=== PATIENT | female | born 1975 | race Hispanic/Latino ===

== ENCOUNTER 2018-03-31 14:36 | Emergency (ER) | payer BC ==
--- NOTE | 2018-03-31 15:40 | ED PDOC ---
HPI: General Adult Time Seen by Provider: 03/31/18 15:39 Chief Complaint (Nursing): Female Genitourinary History Per: Patient History/Exam Limitations: no limitations Onset/Duration Of Symptoms: Days (<1) Current Symptoms Are (Timing): Still Present Severity: Moderate Pain Scale Rating Of: 5 Recently: Treated By A Physician (pt was treated at local urgent care center) Additional Complaint(s): pt p/w + sudden onset, since this morning, + dark urine; pt states she also noticed mild b/l flank aches, with right >> left; pt was seen/evaluated at local urgent care center and dx with UTI but was also prescribed CT and was instructed to come to ED for further eval. pt states at most her flank pain is 5 /10; pt states no fever/chills/sweats, no cp/sob/palpitations, no abd pain, no n /v, no numbness/tingling, no urinary/bowel changes, no dysuria; pt denied rashes ; pt denied other complaints; pt is here for further eval. pt denied fall/trauma/sick contact, no travel. PCP: Dr Holm LMP: 1 month ago family hx: unremarkable PMHX: unremarkable pt is on OCP/otc vitamins Past Medical History Reviewed: Historical Data, Nursing Documentation, Vital Signs Vital Signs: Last Vital Signs Temp 98 F 03/31/18 14:57 Pulse 74 03/31/18 14:57 Resp BP 116/72 03/31/18 14:59 Pulse Ox 99 03/31/18 18:22 - Medical History PMH: No Chronic Diseases - Surgical History Surgical History: No Surg Hx - Family History Family History: States: No Known Family Hx - Living Arrangements Living Arrangements: With Family - Social History Current smoker - smoking cessation education provided: No Alcohol: None Drugs: Denies - Immunization History Hx Tetanus Toxoid Vaccination: No Hx Influenza Vaccination: No Hx Pneumococcal Vaccination: No - Allergies Allergies/Adverse Reactions: Allergies Allergy/AdvReac Type Severity Reaction Status Date / Time No Known Allergies Allergy Verified 03/31/18 14:59 Review of Systems ROS Statement: Except As Marked, All Systems Reviewed And Found Negative Constitutional: Negative for: Fever, Chills, Sweats, Weakness, Malaise, Weight loss Eyes: Negative for: Pain ENT: Negative for: Ear Pain Cardiovascular: Negative for: Chest Pain, Palpitations Respiratory: Negative for: Cough, Shortness of Breath, SOB with Exertion Gastrointestinal: Negative for: Nausea, Vomiting, Abdominal Pain Genitourinary Female: Positive for: Hematuria. Negative for: Dysuria, Frequency , Incontinence Musculoskeletal: Negative for: Neck Pain, Shoulder Pain, Back Pain Skin: Negative for: Rash Neurological: Negative for: Weakness Psych: Negative for: Anxiety, Depression, Psychosis Physical Exam - Reviewed Nursing Documentation Reviewed: Yes Vital Signs Reviewed: Yes (WNL) - Physical Exam Appears: Positive for: Well (alert/awake, GCS = 15, oriented x 3, NAD, comfortable, cooperative), Non-toxic, No Acute Distress Head Exam: Positive for: ATRAUMATIC, NORMAL INSPECTION, NORMOCEPHALIC Skin: Positive for: Normal Color (cap refill < 1sec, no ulcerations, no jaundice , no petechiae, no pallor), Warm. Negative for: Rash Eye Exam: Positive for: Normal appearance, EOMI, PERRL. Negative for: Nystagmus , Scleral icterus ENT: Positive for: Normal ENT Inspection, Pharynx Is, TM Is/Are (WNL) Neck: Positive for: Normal, Painless ROM, Supple, Trachea Midline Cardiovascular/Chest: Positive for: Regular Rate, Rhythm, Chest Non Tender. Negative for: JVD, Murmur Respiratory: Positive for: Normal Breath Sounds. Negative for: Rales, Rhonchi, Wheezing Gastrointestinal/Abdominal: Positive for: Normal Exam, Bowel Sounds, Soft, Other (well nourished/thin female, no focal tenderness, no masses/rebound/ guarding/rigidity; no gutiérrez's sign, no mcburney's point tenderness) Back: Positive for: Normal Inspection, R CVA Tenderness (mild). 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, Oriented, Other (no facial asymmetries, no slurr speech, oriented x 3) - Laboratory Results Result Diagrams: 03/31/18 15:50 03/31/18 15:50 Interpretation Of Abn Labs: ABNL UA with faintly elevated CK - ECG O2 Sat by Pulse Oximetry: 99 Pulse Ox Interpretation: Normal - Radiology X-Ray: Read By Radiologist - Progress ED Course And Treament: 6:30pm - pt is doing well pt is comfortable pt is not in any distress pt is currently awaiting U/S as well as IV abx to be provided Time: 1812 --CT ABD/pelvis FINDINGS: Limitations: The study is limited due to lack of contrast and paucity of intra- abdominal/intrapelvic fat. Lower thorax: Small dependent atelectasis is noted at the lung bases. ABDOMEN: Liver: Normal. No mass. Gallbladder and bile ducts: The gallbladder is contracted without calculus. Pancreas: Normal. No ductal dilation. Spleen: Normal. No splenomegaly. Adrenals: Normal. No mass. Kidneys and ureters: No renal or ureteral calculus. Increased attenuation in the right pelvicocalyceal system. No hydronephrosis. Stomach and bowel: There is fecal stasis in the colon. Appendix: The appendix is not identified. PELVIS: Bladder: No bladder calculus. Reproductive: Unremarkable uterus. The ovaries are not identified. ABDOMEN and PELVIS: Intraperitoneal space: Small cul-de-sac fluid which is higher attenuated than simple fluid. Bones/joints: Sacralization of the right side at L5. No acute fracture. No dislocation. Soft tissues: Unremarkable. Vasculature: Normal. No abdominal aortic aneurysm. Lymph nodes: Normal. No enlarged lymph nodes. IMPRESSION: 1. Limited study due to lack of contrast and paucity of fat. 2. No renal calculus or hydronephrosis. Increased attenuation in the right pelvicocalyceal system. It may be due to hemorrhage. What was the abnormality on the urinalysis? 3. Nonvisualization of the appendix. Constipation. 4. Small high attenuation cul-de-sac fluid. It may be due to hemorrhage or proteinaceous debris. Consider renal and pelvic ultrasound. 7:05pm - pt is endorsed to overnight ED attending, Dr Hoyos, pt is pending U/S and re-evaluation, pt can be dispositioned accordingly Re-evaluation Time: 15:46 Condition: Re-examined, Improved Medical Decision Making Medical Decision Making: Impression: hematuria/abnl UA; flank pain i have consider all the differential diagnosis regarding pt's chief medical complaints/clinical findings, including but are not limited to: r/o infection, r /o stones A/P: hematuria/abnl UA, flank pain - labs - iv - ct - ua - supportive care - observe/reevaluation Disposition - Clinical Impression Clinical Impression: UTI (urinary tract infection), Hematuria - Patient ED Disposition Is Patient to be Admitted: Transfer of Care Discussed With DrEsme: Pascual Hoyos (awaiting U/S results, re-eval; pt can be dispositioned accordingly) Doctor Will See Patient In The: ED Counseled Patient/Family Regarding: Studies Performed, Diagnosis, Need For Followup, Rx Given - Disposition Referrals: PCP,NO [Non-Staff] - Emmanuel Tolentino MD [Staff Provider] - Willard Martin MD [Staff Provider] - Disposition: Transfer of Care (Dr Hoyos, overnight ED attending, will continue to monitor) Disposition Time: 19:05 Condition: STABLE Additional Instructions: Make sure to see your doctor in 1-2 days DRINK PLENTY OF FLUIDS take your medications as prescribed RETURN TO ED IF worse pain, cant breath, persistent vomiting, high fever >101- 102 for hours, altered behavior, slurr speech, facial changes, focal weakness ( arm/leg or both), unable to urinate, heavy/persistent bleeding, passing out, chest pain, or other medical emergencies Instructions: Urinary Tract Infections in Adults Forms: [facility] (Khmer) Print Language: CITIZEN OF [place]
[2018-03-31] MEDS ORDERED: Sodium Chloride 0.9% 1,000 ML IV SCH ×2 (15:45→18:30)
[2018-03-31 16:05] LABS: BASO # 0.1 K/uL (0.0-0.2); BASO % 0.9 % (0.0-2.0); EOS # 0.1 K/uL (0.0-0.7); EOS % 2.1 % (0.0-4.0); LYMPH # 1.7 K/uL (1.0-4.3); LYMPH % 25.1 % (20.0-40.0); MEAN CELL VOLUME 82.3 fl (81.0-99.0); MEAN CORPUSCULAR HEMOGLOBIN 27.2 pg (27.0-31.0); MEAN CORPUSCULAR HGB CONC 33.1 g/dL (33.0-37.0); MEAN PLATELET VOLUME 9.5 fl (7.2-11.7); MONO # 0.3 K/uL (0.0-0.8); MONO % 3.8 % (0.0-10.0); NEUT # 4.5 K/uL (1.8-7.0); NEUT % 68.1 % (50.0-75.0); NRBC % 0.1 % (0.0-0.0); RBC 4.43 Mil/uL (3.80-5.20); RED CELL DISTRIBUTION WIDTH 13.9 % (11.5-14.5); WHITE BLOOD COUNT 6.6 K/uL (4.8-10.8)
[2018-03-31 16:24] LABS: ALB/GLOB RATIO 1.1 (1.0-2.1); ALBUMIN 4.2 g/dL (3.5-5.0); ALT/SGPT 29 U/L (9-52); AST/SGOT 53 U/L (14-36); BLOOD UREA NITROGEN 15 mg/dl (7-17); CALCIUM 9.1 mg/dL (8.4-10.2); GFR AFRICAN-AMERICAN > 60; GFR NON-AFRICAN AMERICAN > 60; LIPASE 99 U/L (23-300)
[2018-03-31 17:31] LABS: URINE BILIRUBIN LARGE (NEGATIVE); URINE CLARITY Turbid (Clear); URINE COLOR RED (YELLOW); URINE GLUCOSE (UA) NEGATIVE (Normal)
[2018-03-31 17:32] LABS: URINE BLOOD LARGE (NEGATIVE); URINE PROTEIN > 300 mg/dL (NEGATIVE); URINE UROBILINOGEN 0.2 mg/dL (0.2-1.0)
[2018-03-31 17:33] LABS: URINE LEUKOCYTE ESTERASE LARGE Leu/uL (Negative)
[2018-03-31 17:35] LABS: URINE BACTERIA MANY (<OCC)
[2018-03-31] MEDS ORDERED: cefTRIAXone 1,000 MG in PED IV SYRINGE 1 SYR IVPB ONE (17:52)
[2018-03-31] MEDS ORDERED: cefTRIAXone (Rocephin) 1 gm Inj ONE (18:19)
--- NOTE | 2018-03-31 19:18 | ED PDOC ---
- Laboratory Results Result Diagrams: 03/31/18 15:50 03/31/18 15:50 - ECG O2 Sat by Pulse Oximetry: 99 Medical Decision Making Medical Decision Making: Time: 1899 --Patient is endorsed to provider by Dr. Jacob, pending US results and re- evaluation. -------- Time: 2013 --US pelvis FINDINGS: Uterus/cervix: The uterus is anteflexed. It is normal in size and echotexture measuring 6.6x2.5x3.1 CM. Normal echogenic endometrial stripe thickness of 4 mm. No myometrial mass. Right ovary: The right ovary measures 1.8x1.3x1.7 CM with a volume of 2.2 mL. No cystic mass. Normal blood flow. Left ovary: The left ovary measures 1.8x1.2x1.5 CM with a volume 1.7 mL. No cystic mass. Normal blood flow. Free fluid: Small cul-de-sac fluid which appears simple without fluid debris levels. IMPRESSION: Small cul-de-sac fluid. -------- Time: 2054 --Upon provider re-evaluation, patient is feeling better, medically stable and requires no further treatment in the ED at this time. Patient will be discharged home with Rx for Levaquin 500mg. Counseling was provided and all questions were answered regarding diagnosis and need for follow up with Dr. Holm and an urologist. There is agreement to discharge plan. Return if symptoms persist or worsen. Clinical Impression: UTI; Hematuria Scribe Attestation: Documented by Sofía Martinez, acting as a scribe for Pascual Hoyos MD. Provider Scribe Attestation: All medical record entries made by the Scribe were at my direction and personally dictated by me. I have reviewed the chart and agree that the record accurately reflects my personal performance of the history, physical exam, medical decision making, and the department course for this patient. I have also personally directed, reviewed, and agree with the discharge instructions and disposition. Disposition Counseled Patient/Family Regarding: Studies Performed, Diagnosis, Need For Followup, Rx Given - Clinical Impression Clinical Impression: UTI (urinary tract infection), Hematuria - POA Present On Arrival: None - Disposition Referrals: Willard Martin MD [Staff Provider] - Emmanuel Tolentino MD [Staff Provider] - PCP,NO [Non-Staff] - Disposition: Routine/Home Disposition Time: 20:55 Condition: IMPROVED Additional Instructions: Make sure to see your doctor in 1-2 days DRINK PLENTY OF FLUIDS take your medications as prescribed RETURN TO ED IF worse pain, cant breath, persistent vomiting, high fever >101- 102 for hours, altered behavior, slurr speech, facial changes, focal weakness ( arm/leg or both), unable to urinate, heavy/persistent bleeding, passing out, chest pain, or other medical emergencies Prescriptions: levoFLOXacin [Levaquin] 500 mg PO DAILY #10 tab Instructions: Urinary Tract Infections in Adults Forms: [facility] (Cymro) Print Language: SYRI[place]
[2018-03-31 21:03] VITALS: BP 114/77; PULSE 60; RESP 18; TEMP 98.2; O2SAT 100
--- NOTE | 2018-04-01 12:19 | US ---
Date of service: 03/31/2018 HISTORY: Abnormal fluid in the cul de sac COMPARISON: Correlation made with CT scan abdomen pelvis 03/31/2018 TECHNIQUE: Transabdominal sonographic evaluation of the pelvis performed. FINDINGS: UTERUS: Measures 6.6 x 3.1 x 2.5 cm. Normal in size and appearance. No fibroid or other mass lesion seen. ENDOMETRIUM: Measures 4.0 mm in diameter. Unremarkable. CERVIX: No cervical abnormality identified. RIGHT OVARY: Measures 1.8 x 1.7 x 1.3 1.8 x 1.5 x 1.2 the cm. No solid mass. Normal flow. LEFT OVARY: Measures cm. No solid mass. Normal flow. FREE FLUID: There is free fluid seen in the right and left periadnexal regions former more so than latter OTHER FINDINGS: None. IMPRESSION: Free fluid within the cul de sac and surrounding both ovaries right greater than left. .
--- NOTE | 2018-04-01 13:21 | CT ---
Date of service: 03/31/2018 PROCEDURE: CT Abdomen and Pelvis with Oral contrast. HISTORY: Right flank pain, abnormal UA COMPARISON: None. TECHNIQUE: Contiguous axial images of the abdomen and pelvis. . Coronal and Sagittal reformats generated. This CT exam was performed using one or more of the following dose reduction techniques: Automated exposure control, adjustment of the mA and/or kV according to patient size, and/or use of iterative reconstruction technique. Radiation dose: Total exam DLP = 205.13 mGy-cm. Note this examination was limited by the lack of oral and intravenous contrast material as well as a paucity of intraperitoneal and retroperitoneal fat FINDINGS: LOWER THORAX: Unremarkable. Minor dependent/passive type atelectasis both posterior lower lung zones. No focal consolidation effusion or basilar pneumothorax. Heart size within range of normal. No significant pericardial effusion. The AA diaphragm LIVER: Unremarkable. No gross lesion or ductal dilatation. GALLBLADDER AND BILE DUCTS: Evaluation of gallbladder is limited due to contraction. No obvious intraluminal gallbladder calculi. PANCREAS: Unremarkable. No mass. No ductal dilatation. SPLEEN: Unremarkable. No splenomegaly. ADRENALS: Unremarkable. KIDNEYS AND URETERS: Unremarkable. No stone or hydronephrosis. BLADDER: Urinary bladder incompletely distended which presumably accounts for thick-walled appearance. The possibility of a cystitis not excluded. Correlation with urinalysis recommended. . REPRODUCTIVE: Unremarkable. APPENDIX: Appendix not seen on this exam BOWEL: As mentioned above, evaluation of the bowel is limited. . The stomach appears to be distended with a large amount of food debris and air. No definitive radiographic evidence of acute mechanical small bowel obstruction. Large amount of stool seen throughout the colon consistent with fecal retention/ constipation. . PERITONEUM: Free fluid in the pelvis of uncertain etiology. Follow-up pelvic ultrasound may be prudent. Repeat CT scan with oral and intravenous contrast material LYMPH NODES: Unremarkable. No enlarged lymph nodes. VASCULATURE: Unremarkable. No aortic aneurysm. BONES: No fracture or destructive lesion. OTHER FINDINGS: None. IMPRESSION: Free fluid in the pelvis of uncertain etiology. Follow-up pelvic ultrasound may be prudent. Repeat CT scan with oral and intravenous contrast material Urinary bladder incompletely distended which presumably accounts for thick-walled appearance. The possibility of a cystitis not excluded. Correlation with urinalysis recommended. . Constipation.
== END 2018-03-31 21:13 | disposition home or self-care (01) ==
LOC: H.ER 14:36
DX: N39.0 Urinary tract infection, site not specified (principal); R31.9 Hematuria, unspecified
CPT/HCPCS: 74176; 76857; 80053; 81003; 81025; 82550; 83690; 85025; 96361; 96365; 96375; 99284; J0696; J1885; J7030